=== PATIENT | male | born 1950 | race Two or more races ===

== ENCOUNTER 2020-01-17 14:19 | Emergency (ER) | payer MEDICARE, MEDICAID ==
[~2020-01-17] VITALS: Ht 167.6 cm; Wt 79.0 kg
[2020-01-17] MEDS ORDERED: SODIUM CHLORIDE 0.9% 1,000 ML IV ONE (14:47)
[2020-01-17 16:37] LABS: CHLORIDE 102 mEq/L (98-107)
[2020-01-17 16:43] LABS: PROTHROMBIN TIME 10.7 sec (9.6-11.0)
[2020-01-17 18:16] LABS: CLARITY URINE CLEAR (CLEAR); COLOR URINE YELLOW (YELLOW); KETONES URINE NEGATIVE (NEGATIVE); LEUKOCYTE ESTERASE URINE TRACE (NEGATIVE); NITRITE URINE NEGATIVE (NEGATIVE); OCCULT BLOOD URINE NEGATIVE (NEGATIVE); PH URINE 5.5 (4.5-8.0); PROTEIN URINE 3+ (NEGATIVE); SPECIFIC GRAVITY URINE 1.017 (1.005-1.030)
[2020-01-17 23:31] LABS: BASOPHILS % 0.2 % (0.0-2.0); EOSINOPHILS % 2.1 % (0.0-5.0); HEMATOCRIT. 28.5 % (42.0-52.0); HEMOGLOBIN. 8.8 g/dL (14.0-18.0); LYMPHOCYTES % 56.9 % (20.0-50.0); MEAN CORPUSCULAR VOLUME 80.6 fL (80.0-94.0); MEAN PLATELET VOLUME 11.4 fl (7.4-10.4); MONOCYTES % 8.8 % (2.0-8.0); RED BLOOD CELL COUNT 3.53 mill/uL (4.7-6.1); RED CELL DISTRIBUTION WIDTH 18.5 % (11.6-14.6)
[2020-01-18 00:15] LABS: PLATELET 21 x1000/uL (130-400)
[2020-01-18 01:30] VITALS: BP 124/68
== END 2020-01-18 02:30 | disposition home or self-care (01) ==
LOC: ER 14:19 → CANBEDREQ 01-18 20:30
DX: R55 Syncope and collapse (principal); R53.1 Weakness; E78.00 Pure hypercholesterolemia, unspecified; E11.9 Type 2 diabetes mellitus without complications; I10 Essential (primary) hypertension; Z88.0 Allergy status to penicillin
CPT/HCPCS: 36415; 71045; 80053; 81003; 83880; 84484; 85025; 85610; 96360; 96361; 99285; J7030